=== PATIENT | female | born 1970 | race African-American/Black ===

== ENCOUNTER 2023-04-19 21:06 | Emergency (ER) | payer MEDICAID ==
[~2023-04-19] VITALS: Ht 154.9 cm; Wt 63.6 kg
[2023-04-19 21:07] VITALS: BP 102/60; PULSE 120; RESP 18; TEMP 99
[2023-04-19] MEDS ORDERED: HYDR8TAB2 PO (21:19)
== END 2023-04-19 22:16 | disposition left against medical advice (07) ==
LOC: EMS 21:09
DX: Z76.0 Encounter for issue of repeat prescription (principal); Z53.21 Procedure and treatment not carried out due to patient leaving prior to being seen by health care provider
CPT/HCPCS: 99281; Z7502